=== PATIENT | male | born 1975 | race Caucasian/White ===

== ENCOUNTER 2019-08-05 03:13 | Emergency (ER) | payer OTHER ==
[~2019-08-05] VITALS: Ht 185.4 cm; Wt 87.5 kg
[2019-08-05] MEDS ORDERED: NORCO 10-325 T1 EACH PO (05:17)
[2019-08-05] MEDS ORDERED: DOXYCYCLINE 10100 MG PO (05:17)
[2019-08-05 05:24] VITALS: BP 138/78
== END 2019-08-05 05:24 | disposition home or self-care (01) ==
LOC: ER 03:13
DX: N48.22 Cellulitis of corpus cavernosum and penis (principal); N50.9 Disorder of male genital organs, unspecified; Z91.018 Allergy to other foods

== ENCOUNTER 2020-04-21 23:14 | Emergency (ER) | payer OTHER ==
[~2020-04-21] VITALS: Ht 185.4 cm; Wt 83.9 kg
[~2020-04-21 23:14] MED LIST: DOXYCYCLINE 10100 MG PO; NORCO 10-325 T1 EACH PO
[2020-04-21 23:56] LABS: HEMATOCRIT 39.1 % (42.0-52.0); HEMOGLOBIN 13.2 gm/dL (14.0-18.0); MCH 29.2 pg (26.0-34.0); MCHC 33.7 g/dL (28.0-37.0); MCV 86.6 fL (80.0-100.0); PLATELET COUNT 234 thou/uL (150-400); RBC 4.52 mil/uL (4.50-6.00); RDW 13.3 % (10.5-14.5)
[2020-04-22 00:01] LABS: ANION GAP 9 mmol/L (7-16); BUN 22 mg/dL (7-18); CALCIUM 8.3 mg/dL (8.5-10.1); CHLORIDE 104 mmol/L (98-107); CO2 27 mmol/L (21-32); GLUCOSE 119 mg/dL (74-106); POTASSIUM 3.7 mmol/L (3.5-5.1); SODIUM 140 mmol/L (136-145)
[2020-04-22 00:09] LABS: ALBUMIN 3.4 g/dL (3.4-5.0); SGOT 24 U/L (15-37); SGPT 29 U/L (30-65); TOTAL BILIRUBIN 0.3 mg/dL (0.2-1.0); TOTAL PROTEIN 6.7 g/dL (6.4-8.2); TROPONIN-I <0.06 ng/mL (<0.06)
[2020-04-22 00:51] LABS: ABSOLUTE NEUTROPHILS 3.4 thou/uL (1.4-8.2)
[2020-04-22 00:52] LABS: PLATELET ESTIMATE NORMAL
[2020-04-22 02:03] LABS: AMP/METHAMP POSITIVE (Negative); BARBITURATES Negative (Negative); BENZODIAZEPINES Negative (Negative); COCAINE Negative (Negative); METHADONE Negative (Negative); OPIATES POSITIVE (Negative); PCP Negative (Negative)
[2020-04-22 04:00] VITALS: BP 105/64
--- NOTE | 2020-04-22 08:46 | EKG ---
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: [facility] : 1975 Requested By: Peace Murphy Order Number: [id number] MD: Marcos Wright Measurements Intervals [place] Rate: 76 P: 65 GA: 125 QRS: 66 QRSD: 95 T: 55 QT: 386 QTc: 435 Interpretive Statements Sinus rhythm Multiple premature complexes, vent & supraven Baseline wander in lead(s) V1,V2 No previous ECG available for comparison Electronically Signed On 04-22-2020 8:44:53 CDT by Marcos Wright [email or web address] <ELECTRONICALLY SIGNED> By: Marcos Wright MD, [facility] 04/22/20 [id number] Marcos Wright MD, [facility] /EPI
== END 2020-04-22 05:51 | disposition home or self-care (01) ==
LOC: ER 23:14
PROVIDERS: Student in an Organized Health Care Education/Training Program
DX: R07.89 Other chest pain (principal); F15.129 Other stimulant abuse with intoxication, unspecified; F11.90 Opioid use, unspecified, uncomplicated; Z91.018 Allergy to other foods

== ENCOUNTER 2020-10-03 23:50 | Emergency (ER) | payer OTHER ==
[~2020-10-03] VITALS: Ht 185.4 cm; Wt 86.2 kg
[2020-10-04 03:11] LABS: HEMATOCRIT 42.2 % (42.0-52.0); HEMOGLOBIN 14.1 gm/dL (14.0-18.0); MCH 28.4 pg (26.0-34.0); MCHC 33.5 g/dL (28.0-37.0); MCV 84.9 fL (80.0-100.0); PLATELET COUNT 267 thou/uL (150-400); RBC 4.97 mil/uL (4.50-6.00); RDW 14.4 % (10.5-14.5); WBC 5.2 thou/uL (4.0-11.0)
[2020-10-04 03:14] LABS: ANION GAP 10 mmol/L (7-16); BUN 19 mg/dL (7-18); CHLORIDE 100 mmol/L (98-107); CO2 29 mmol/L (21-32); CREATININE 1.1 mg/dL (0.7-1.3); GLUCOSE 117 mg/dL (74-106); POTASSIUM 3.9 mmol/L (3.5-5.1); SODIUM 139 mmol/L (136-145)
[2020-10-04 03:20] LABS: ALBUMIN 3.4 g/dL (3.4-5.0); DIRECT BILIRUBIN < 0.1 mg/dL (<0.1-0.2); SGOT 21 U/L (15-37); SGPT 27 U/L (30-65); TOTAL BILIRUBIN 0.3 mg/dL (0.2-1.0); TOTAL PROTEIN 7.5 g/dL (6.4-8.2)
[2020-10-04 03:27] LABS: APTT 26.8 Seconds (24.5-32.8); PROTIME 9.4 Seconds (9.3-11.4)
[2020-10-04] MEDS ORDERED: NORCO 5-325 TA1 EAC2 PO (03:33)
[2020-10-04 03:48] VITALS: BP 120/79
[2020-10-04 04:04] LABS: ABSOLUTE NEUTROPHILS 2.8 thou/uL (1.4-8.2)
== END 2020-10-04 03:50 | disposition home or self-care (01) ==
LOC: ER 23:50
PROVIDERS: Emergency Medicine
DX: S02.609A Fracture of mandible, unspecified, initial encounter for closed fracture (principal); F17.210 Nicotine dependence, cigarettes, uncomplicated; Z91.018 Allergy to other foods; Y04.2XXA Assault by strike against or bumped into by another person, initial encounter; Y93.89 Activity, other specified; Y92.89 Other specified places as the place of occurrence of the external cause; Y99.8 Other external cause status